=== PATIENT | female | born 1955 | race Caucasian/White ===

== ENCOUNTER → 2017-12-22 18:07 | Outpatient (CLI) | payer OTHER ==
[2015-09-05 06:59] VITALS: BMI 26.7
[~2017-12-22 18:07] MED LIST: ALLERGY INJ; CO Q-10200 MG PO; DILAUDID4 MG PO; FLINTSTONE1 TAB.CHEW PO; HYDROCHLOROTHIA25 MG PO; KLONOPIN1 MG PO; KLOR-CON 1010 MEQ PO; MIRALAX17 GM PO; MOBIC7.5 MG PO; NEXIUM20 MG PO; NORVASC2.5 MG PO; PRAVACHOL20 MG PO; PROBIOTIC1 EAC1 PO; RESTASIS EYE DR30 EA EACH EYE; TIROSINT137 MCG PO
== END | disposition home or self-care (01) ==
LOC: D.MAMMO 15:00
DX: Z12.31 Encounter for screening mammogram for malignant neoplasm of breast (principal)

== ENCOUNTER 2018-12-26 08:00 | Outpatient (CLI) | payer MEDICARE ==
[2015-09-05 06:59] VITALS: BMI 26.7
== END 2018-12-26 23:59 | disposition home or self-care (01) ==
LOC: D.MAMMO 08:00
PROVIDERS: ATTEND Internal Medicine
DX: Z12.31 Encounter for screening mammogram for malignant neoplasm of breast (principal)

== ENCOUNTER 2020-01-18 18:37 | Outpatient (CLI) | payer MEDICARE, OTHER ==
[2015-09-05 06:59] VITALS: BMI 26.7
== END 2020-01-18 23:59 | disposition home or self-care (01) ==
LOC: D.MAMMO 18:37
PROVIDERS: ATTEND Internal Medicine
DX: Z12.31 Encounter for screening mammogram for malignant neoplasm of breast (principal)

== ENCOUNTER → 2020-02-09 19:34 | Outpatient (CLI) | payer MEDICARE, OTHER ==
[2015-09-05 06:59] VITALS: BMI 26.7
== END | disposition home or self-care (01) ==
LOC: D.MAMMO 14:00
PROVIDERS: ATTEND Internal Medicine
DX: R92.8 Other abnormal and inconclusive findings on diagnostic imaging of breast (principal)